=== PATIENT | female | born 1935 | race Hispanic/Latino ===

== ENCOUNTER 2017-03-01 11:20 | Day surgery (SDC) | payer MEDICARE ==
[~2017-03-01 11:20] MED LIST: AK-Dilate ONE; IOPIDINE ONE; MYDRIACYL ONE
[2017-03-01 12:06] VITALS: BP 130/66
[2017-03-01] MEDS ORDERED: AK-Dilate OD ONE (12:15)
[2017-03-01] MEDS ORDERED: MYDRIACYL OD ONE (12:15)
[2017-03-01] MEDS ORDERED: IOPIDINE OD ONE (12:15)
== END 2017-03-01 12:51 | disposition home or self-care (01) ==
LOC: OR 11:20
PROVIDERS: ATTEND Ophthalmology
DX: E11.36 Type 2 diabetes mellitus with diabetic cataract (principal); H26.491 Other secondary cataract, right eye; I10 Essential (primary) hypertension; E78.00 Pure hypercholesterolemia, unspecified; K21.9 Gastro-esophageal reflux disease without esophagitis; E03.9 Hypothyroidism, unspecified; M13.859 Other specified arthritis, unspecified hip; Z87.891 Personal history of nicotine dependence
CPT/HCPCS: 82962